=== PATIENT | female | born 1975 | race American Indian/Alaskan Native ===

== ENCOUNTER 2017-07-23 14:07 | Emergency (ER) | payer SELFPAY ==
[2017-07-23 14:25] VITALS: BP 149/90
== END 2017-07-23 19:45 | disposition left against medical advice (07) ==
LOC: ED 14:07
DX: R73.9 Hyperglycemia, unspecified (principal); Z53.21 Procedure and treatment not carried out due to patient leaving prior to being seen by health care provider
CPT/HCPCS: 82962

== ENCOUNTER 2017-07-26 14:39 | Emergency (ER) | payer OTHER ==
[2017-07-26 14:45] VITALS: BP 139/89
== END 2017-07-26 22:00 | disposition left against medical advice (07) ==
LOC: ED 14:39
DX: R73.9 Hyperglycemia, unspecified (principal); Z53.21 Procedure and treatment not carried out due to patient leaving prior to being seen by health care provider
CPT/HCPCS: 82962